=== PATIENT | female | born 1960 | race Caucasian/White ===

== ENCOUNTER 2023-08-30 15:55 | Emergency (ER) | payer MEDICARE, SELFPAY ==
[2023-08-30 16:14] VITALS: BP 125/46; PULSE 84; RESP 20; TEMP 37.7; O2SAT 98; BMI 28.9
--- NOTE | 2023-08-30 16:53 | CRLHL7_ITS ---
For Patients: As a result of the Century Cures Act, medical imaging exams and procedure reports are released immediately into your electronic medical record. You may view this report before your referring provider. If you have questions, please contact your health care provider. INDICATION: Redness and swelling TECHNIQUE: Ultrasound venous duplex lower left extremity. Compression venous exam was performed using hussein-scale, color Doppler, and spectral Doppler analysis. COMPARISON: None. FINDINGS: Sonographic imaging demonstrates the left common femoral, deep femoral, superficial femoral, popliteal, posterior tibial and greater saphenous and the contralateral right common femoral veins to be fully compressible with normal color Doppler blood flow. There is moderate superficial edema. IMPRESSION: Normal left lower extremity venous ultrasound, no sign of deep venous thrombosis. Moderate superficial edema. Dictated by Gab Live MD @ 08/30/2023 7:16:04 PM (Electronically Signed)
--- NOTE | 2023-08-30 16:54 | ED.GENADULT ---
HPI - General Adult General Chief complaint: Skin/Abscess/Foreign Body Stated complaint: L leg swelling Time Seen by Provider: 08/30/23 16:03 History of Present Illness HPI narrative: This 63-year-old female comes in with her sister. The patient has Down syndrome and normally functions well for activities of daily living at home. In the past couple days she has developed some redness and swelling in her left lower extremity. There is no report of any injury event. She does have very large legs bilaterally. He does not report any chest pain or shortness of breath. There is no prior history of blood clot and she does not describe any injury event. She has erythema more on the posterior aspect of her lower extremity with some increased warmth typical of cellulitis. Related Data Home Medications Medication Instructions Recorded Confirmed guaifenesin 100 mg/5 mL oral 200 mg PO Q6H PRN 08/30/23 08/30/23 liquid (Adult Tussin Chest Congestion) Previous Rx's Medication Instructions Recorded cephalexin 250 mg/5 mL oral 500 mg (10 mL) PO TID #200 mL 08/30/23 suspension Allergies Allergy/AdvReac Type Severity Reaction Status Date / Time No Known Drug Allergies Allergy Verified 08/30/23 16:13 Review of Systems Status of ROS: Reports: 10 or more systems reviewed and unremarkable except as noted in History and below Narrative: Constitutional: No fevers, no weight gain or loss. Eyes: No discharge. No vision changes. HENT: No congestion, no sore throat, no ear pain. Cardiovascular: No chest pain, no palpitations. Respiratory: No shortness of breath, no wheezes, no cough. Gastrointestinal: No abdominal pain, no vomiting, no diarrhea. Genitourinary: No dysuria, no hematuria. Musculoskeletal: Left leg swelling and redness as described above. Skin: No rashes, no pruritis. Neurological: No dizziness, weakness, sensory change, speech change. Endo/Heme/Allergies: No bruising or bleeding. No polydipsia. Pysch: no suicidality, no anxiety, no insomnia. All other systems reviewed and are negative. PFSH PFS Social History Smoking Status: Never smoker Do you use any of these nicotine containing products: None Second hand tobacco smoke exposure: No How often do you have a drink containing alcohol: never How often do you have six or more drinks on one occasion: Never AUDIT-C Alcohol total score: 0 Non-prescribed substance use: denies use service: No Exam Narrative: Exam Narrative: Constitutional: Well-developed, well-nourished, no acute distress. HEENT: Normocephalic, atraumatic. Neck: Normal range of motion. Nontender. Supple. Heart: Regular. No murmurs. Normal rate. Intact distal pulses. Lungs: Clear to auscultation. No chest discomfort. No wheezes, rhonchi, or rales. Abdomen: Normal bowel sounds. Nontender. No rebound tenderness. Genitalia: Deferred. Back: No midline tenderness. Normal range of motion. Extremities: Normal range of motion. No injury. Large legs with numerous folds of skin bilaterally but her left leg is larger than her right currently with some erythema and warmth in the posterior aspect of the lower portion of her left leg. There is no skin breakdown or sign of injury. Skin: Intact. No rash. Warm. No erythema or pallor. Neurologic: No altered sensation. No weakness. Alert and oriented. Psychiatric: No suicidality. No anxiety or depression. No insomnia. Nursing notes and vitals signs are reviewed. Const: Vital Signs, click to edit/add: Vital Signs - 24 hr 08/30/23 16:14 Temperature 100 F H Pulse Rate [Pulse Oximeter] 84 Respiratory Rate 20 Blood Pressure [Ri ght Forearm] 125/46 L Pulse Oximetry 98 Oxygen Delivery Me thod Room Air Course Vital Signs Vital signs: Initial Vital Signs Temperature 100 F H 08/30/23 16:14 Temperature Source Temporal Artery Scan 08/30/23 16:14 Pulse Rate 84 08/30/23 16:14 Pulse Rhythm Regular 08/30/23 16:14 Respiratory Rate 20 08/30/23 16:14 Blood Pressure 125/46 L 08/30/23 16:14 Blood Pressure Mean 72 08/30/23 16:14 Blood Pressure Position Left Lateral 08/30/23 16:14 Pulse Oximetry 98 08/30/23 16:14 Oxygen Delivery Method Room Air 08/30/23 16:14 Vital Signs Temperature 100 F H 08/30/23 16:14 Pulse Rate 84 08/30/23 16:14 Respiratory Rate 20 08/30/23 16:14 Blood Pressure 125/46 L 08/30/23 16:14 Pulse Oximetry 98 08/30/23 16:14 Oxygen Delivery Method Room Air 08/30/23 16:14 Temperature 100 F H 08/30/23 16:14 Pulse Rate 84 08/30/23 16:14 Respiratory Rate 20 08/30/23 16:14 Blood Pressure 125/46 L 08/30/23 16:14 Pulse Oximetry 98 08/30/23 16:14 Oxygen Delivery Method Room Air 08/30/23 16:14 Medical Decision Making MDM Narrative Medical decision making narrative: This patient comes in with some redness and warmth in the posterior aspect of her right lower extremity in the calf region. This is typical of cellulitis. She does have chronic large legs. She does not have any history of deep venous thrombosis. I did order ultrasound of her left lower extremity which shows no sign of blood clot. Her symptoms are typical for a cellulitis. She did receive a prescription for Keflex. I did describe signs and symptoms to the patient's sister regarding typical recovery from this and symptoms that would indicate a need for return and re-evaluation. Discharge Plan Discharge Clinical Impression: Cellulitis Patient Disposition: Home w/ Parent or Adult Condition: Unchanged Additional Instructions: Take medication as prescribed. Follow up with MD return if worsening symptoms occur. Prescriptions: New cephalexin 250 mg/5 mL suspension for reconstitution 500 mg PO TID Qty: 200 0RF No Action guaifenesin [Adult Tussin Chest Congestion] 100 mg/5 mL liquid 200 mg PO Q6H PRN Stand Alone Forms: My[facility] Info Instructions
== END 2023-08-30 18:11 | disposition home or self-care (01) ==
LOC: ED 17:55
PROVIDERS: Emergency Provider Emergency Medicine Emergency Medical Services
DX: L03.116 Cellulitis of left lower limb (principal)
CPT/HCPCS: 93971; 99284